=== PATIENT | male | born 1975 ===

== ENCOUNTER 2019-05-10 11:59 | Emergency (ER) | payer BC, OTHER ==
--- NOTE | 2019-05-10 13:53 | UC ---
Dental HPI - HPI Summary HPI Summary: 44-year-old male comes in with a chief complaint of dental infection. Patient' s had a dental carry in the left lower molar that's been giving him pain and swelling on an off for months. Is gotten worse in the last 1 month. Now he feels some swelling underneath the jawline and sore throat bilaterally and pressure in the ears bilaterally worse on the left than on the right. Tylenol has been helping with the pain. Chewing makes the pain worse. No fevers measured. No shortness of breath. No known contact with Covid. Patient would like to be tested for Covid. - History of Current Complaint Chief Complaint: UCDentalProblem Stated Complaint: DENTAL / EAR PAIN Time Seen by Provider: 05/10/19 13:08 Pain Intensity: 3 - Allergies/Home Medications Allergies/Adverse Reactions: Allergies Allergy/AdvReac Type Severity Reaction Status Date / Time No Known Allergies Allergy Verified 05/10/19 13:11 Home Medications: Home Medications Acetaminophen [Acetaminophen Extra Strength] 1,000 mg PO Q12H 05/10/19 [History Confirmed 05/10/19] Amoxicillin PO (*) [Amoxicillin 500 MG CAP*] 500 mg PO TID #30 cap 05/10/19 [Rx] Multivitamin [Multivitamins] 1 cap PO DAILY 05/10/19 [History Confirmed 05/10/19 ] PMH/Surg Hx/FS Hx/Imm Hx Previously Healthy: Yes - Surgical History Surgical History: Yes Surgery Procedure, Year, and Place: appendectomy - Family History Known Family History: Positive: Non-Contributory - Social History Alcohol Use: Rare Substance Use Type: None Smoking Status (MU): Heavy Every Day Tobacco Smoker Review of Systems All Other Systems Reviewed And Are Negative: Yes Constitutional: Positive: Negative Skin: Positive: Negative Eyes: Positive: Negative ENT: Positive: Dental Pain, Sore Throat, Ear Ache Respiratory: Positive: Other - SEE HPI Cardiovascular: Positive: Negative Gastrointestinal: Positive: Negative Motor: Positive: Negative Neurovascular: Positive: Negative Musculoskeletal: Positive: Negative Neurological/Mental Status: Positive: Negative Psychological: Positive: Negative Is Patient Immunocompromised?: No Physical Exam Triage Information Reviewed: Yes Appearance: Well-Appearing, No Pain Distress, Well-Nourished Vital Signs: Initial Vital Signs Temp 98.3 F 05/10/19 13:45 Pulse 91 05/10/19 13:45 Resp 12 05/10/19 13:45 BP 131/107 05/10/19 13:45 Pulse Ox 97 05/10/19 13:45 Vital Signs Reviewed: Yes Eye Exam: Normal Eyes: Positive: Conjunctiva Clear ENT: Positive: Pharynx normal - Oropharynx open, TMs normal, Uvula midline, Other - There is some swelling below the jawline on the left. Negative: Muffled voice, Hoarse voice Dental: Positive: Gross Decay/Caries @ - Left lower molar Respiratory: Positive: No respiratory distress Musculoskeletal: Positive: Strength Intact, ROM Intact Neurological: Positive: Alert, Muscle Tone Normal Psychological: Positive: Age Appropriate Behavior Skin Exam: Normal Dental Complaint Course/Dx - Course Course Of Treatment: Going to treat the dental infection with amoxicillin. Covid results are pending. Patient going in self-isolation. Patient follow-up with his dentist. Patient will get reevaluated if worse. - Differential Dx/Diagnosis Provider Diagnosis: Dental infection, Elevated blood pressure reading Discharge ED - Sign-Out/Discharge Documenting (check all that apply): Patient Departure All imaging exams completed and their final reports reviewed: No Studies - Discharge Plan Condition: Stable Disposition: HOME Prescriptions: Amoxicillin PO (*) [Amoxicillin 500 MG CAP*] 500 mg PO TID #30 cap Patient Education Materials: Dental Abscess (ED), Toothache (ED) Forms: COVID-19 Tested & Isolation Referrals: [facility] [Outside] [facility] [Outside] Additional Instructions: PLACE YOURSELF IN HOME ISOLATION. [facility] CONTA[facility] YOU. Your blood pressure was elevated here in clinic. Take your blood pressure at home, record the readings, and follow up with your primary care physician. FOLLOW UP WITH YOUR DENTIST. GET REEVALUATED IF NOT IMPROVED OR WORSE OR ANY QUESTIONS OR CONCERNS. - Billing Disposition and Condition Condition: STABLE Disposition: Home
== END 2019-05-10 14:00 | disposition home or self-care (01) ==
LOC: UCEAST 11:59
DX: K04.7 Periapical abscess without sinus (principal); R03.0 Elevated blood-pressure reading, without diagnosis of hypertension; Z11.59 Encounter for screening for other viral diseases; F17.200 Nicotine dependence, unspecified, uncomplicated
CPT/HCPCS: 87635; 99202; G0463